=== PATIENT | female | born 1960 | race African-American/Black ===

== ENCOUNTER → 2017-04-05 | Outpatient (CLI) | payer BC ==
[2017-04-05 07:30] LABS: Basophils # (auto) 0 uL; Basophils % (auto) 0.2 % (0.0-2.0); Eosinophils # (auto) 0.1 uL; Eosinophils % (auto) 1.1 % (0.0-7.0); Hematocrit 40.5 % (36.0-46.0); Hemoglobin 13.7 g/dL (12.2-16.2); Lymphocytes # (auto) 4.5 uL; Lymphocytes % (auto) 40.7 % (10.0-50.0); Mean Corpuscular Hemoglobin 30.8 pg (28.0-32.0); Mean Corpuscular Hgb Conc. 33.8 g/dL (32.0-36.0); Mean Corpuscular Volume 91.1 fL (80.0-100.0); Mean Platelet Volume 7.6 fL (6.9-10.8); Monocytes # (auto) 0.4 uL; Platelet Count (auto) 299 10^3/uL (140-450); Red Cell Distribution Width 14.9 % (11.8-14.3); White Blood Cell 11.1 10^3/uL (4.4-10.8)
[2017-04-05 07:43] LABS: Albumin 3.4 g/dL (3.4-5.0); Bilirubin, Total 0.2 mg/dL (0.2-1.0); Potassium 3.8 mmol/L (3.5-5.1); Total Protein 8.5 g/dL (6.4-8.2)
== END | disposition home or self-care (01) ==
LOC: LAB 06:36
PROVIDERS: ATTEND Internal Medicine
DX: Z12.11 Encounter for screening for malignant neoplasm of colon (principal); E11.9 Type 2 diabetes mellitus without complications
CPT/HCPCS: 36415; 80053; 80061; 82043; 83036; 84443; 85025

== ENCOUNTER → 2017-04-09 | Outpatient (CLI) | payer BC | END | disposition home or self-care (01) | LOC: LAB 15:01 | DX: Z12.11 Encounter for screening for malignant neoplasm of colon (principal); E11.9 Type 2 diabetes mellitus without complications | CPT/HCPCS: 82270 ==

== ENCOUNTER → 2017-10-15 | Outpatient (CLI) | payer BC ==
[2017-10-15 08:13] LABS: Albumin 3.3 g/dL (3.4-5.0); BUN/Creatinine Ratio 18.2; Bilirubin, Total 0.2 mg/dL (0.2-1.0); Calcium 8.8 mg/dL (8.5-10.1); Potassium 3.8 mmol/L (3.5-5.1)
== END | disposition home or self-care (01) ==
LOC: LAB 07:09
PROVIDERS: ATTEND Internal Medicine
DX: E11.9 Type 2 diabetes mellitus without complications (principal); E78.5 Hyperlipidemia, unspecified
CPT/HCPCS: 36415; 80053; 80061; 82306; 83036

== ENCOUNTER 2018-02-22 07:40 | Day surgery (SDC) | payer BC ==
[2018-02-19 12:40] LABS: Basophils # (auto) 0 uL; Basophils % (auto) 0.1 % (0.0-2.0); Eosinophils # (auto) 0.1 uL; Eosinophils % (auto) 1.3 % (0.0-7.0); Hematocrit 41.7 % (36.0-46.0); Hemoglobin 13.8 g/dL (12.2-16.2); Lymphocytes # (auto) 3.3 uL; Lymphocytes % (auto) 33.5 % (10.0-50.0); Mean Corpuscular Hemoglobin 30.3 pg (28.0-32.0); Mean Corpuscular Volume 91.9 fL (80.0-100.0); Monocytes # (auto) 0.6 uL; Monocytes % (auto) 5.7 % (0.0-12.0); Neutrophils # (auto) 5.8 uL; Neutrophils % (auto) 59.4 % (37.0-80.0); Nucleated Red Blood Cells % 0.1 %; Platelet Count (auto) 280 10^3/uL (140-450); Red Blood Cells 4.54 10^6/uL (4.0-5.20); Red Cell Distribution Width 14.9 % (11.8-14.3); White Blood Cell 9.8 10^3/uL (4.4-10.8)
[2018-02-19 12:55] LABS: INR 0.91 (0.9-1.15); Partial Thromboplastin Time 28.9 sec (23.78-33.04); Prothrombin Time 9.8 sec (9.27-12.13)
[~2018-02-22] VITALS: Ht 167.6 cm; Wt 118.8 kg
[~2018-02-22 07:40] MED LIST: CANA1TAB PO
[2018-02-22] MEDS ORDERED: NALOXONE HCL 0.4 MG/ML VIAL ONE (08:09)
[2018-02-22] MEDS: fentaNYL CITRATE 100 MCG/2 ML VL ONE ×3 (08:09→09:13)
[2018-02-22] MEDS ORDERED: FLUMAZENIL 0.1 MG/ML INJ 10ML MDV IV ONE (08:09)
[2018-02-22] MEDS ORDERED: SODIUM CHLORIDE LOCK 10 ML ONE (08:09)
[2018-02-22] MEDS ORDERED: diphenhdrAMINE HCL 50 MG/1 ML VL ONE (08:09)
[2018-02-22] MEDS: MIDAZOLAM HCL 5 MG/ML-1ML VIAL ONE ×3 (09:04→09:13)
[2018-02-22] MEDS ORDERED: fentaNYL CITRATE 100 MCG/2 ML VL ONE (09:16)
[2018-02-22] MEDS ORDERED: MIDAZOLAM HCL 5 MG/ML-1ML VIAL ONE (09:16)
[2018-02-22 09:58] VITALS: BP 143/91
== END 2018-02-22 09:58 | disposition home or self-care (01) ==
LOC: GI 07:40
PROVIDERS: ATTEND Internal Medicine Gastroenterology
DX: Z12.11 Encounter for screening for malignant neoplasm of colon (principal); D12.0 Benign neoplasm of cecum; E66.9 Obesity, unspecified; E11.9 Type 2 diabetes mellitus without complications; Z68.41 Body mass index [BMI] 40.0-44.9, adult; Z98.890 Other specified postprocedural states; Z90.710 Acquired absence of both cervix and uterus
CPT/HCPCS: 36415; 45380; 82962; 85025; 85610; 85730; J2250; J3010; J7030; 99152

== ENCOUNTER → 2019-04-25 | Outpatient (CLI) | payer BC ==
[2019-04-25 09:50] LABS: Basophils # (auto) 0 uL; Basophils % (auto) 0.3 % (0.0-2.0); Eosinophils # (auto) 0.1 uL; Eosinophils % (auto) 0.9 % (0.0-7.0); Hematocrit 42.6 % (36.0-46.0); Hemoglobin 14.1 g/dL (12.2-16.2); Lymphocytes # (auto) 4.2 uL; Mean Corpuscular Hemoglobin 30.1 pg (28.0-32.0); Mean Corpuscular Hgb Conc. 33.1 g/dL (32.0-36.0); Monocytes # (auto) 0.5 uL; Monocytes % (auto) 4.4 % (0.0-12.0); Neutrophils # (auto) 6.6 uL; Neutrophils % (auto) 57.4 % (37.0-80.0); Platelet Count (auto) 282 10^3/uL (140-450); Red Blood Cells 4.68 10^6/uL (4.0-5.20); Red Cell Distribution Width 14.3 % (11.8-14.3); White Blood Cell 11.5 10^3/uL (4.4-10.8)
[2019-04-25 10:53] LABS: Albumin 3.4 g/dL (3.4-5.0); BUN/Creatinine Ratio 21.1; Calcium 9.2 mg/dL (8.5-10.1)
[2019-04-25 10:56] LABS: Bilirubin, Total 0.3 mg/dL (0.2-1.0); Total Protein 8.5 g/dL (6.4-8.2)
[2019-04-25 11:01] LABS: Free T3 3.09 pg/mL (2.3-4.2); Free T4 (Free Thyroxine) 0.88 ng/dL (0.89-1.76)
== END | disposition home or self-care (01) ==
LOC: LAB 09:24
PROVIDERS: ATTEND Internal Medicine
DX: Z00.00 Encounter for general adult medical examination without abnormal findings (principal); E78.5 Hyperlipidemia, unspecified; E11.9 Type 2 diabetes mellitus without complications
CPT/HCPCS: 36415; 80053; 80061; 82043; 82306; 83036; 84439; 84443; 84481; 85025

== ENCOUNTER 2020-05-13 11:59 | Inpatient (IN) | payer BC ==
[~2020-05-13] VITALS: Ht 167.6 cm; Wt 123.5 kg
[2020-05-13 14:43] LABS: Basophils # (auto) 0 10 ^3/uL (0-0.2); Basophils % (auto) 0.1 % (0.0-2.0); Eosinophils # (auto) 0 10 ^3/uL (0-0.8); Hematocrit 41.8 % (36.0-46.0); Lymphocytes # (auto) 2.3 10 ^3/uL (0.4-5.4); Lymphocytes % (auto) 22.4 % (10.0-50.0); Mean Corpuscular Hemoglobin 30.2 pg (28.0-32.0); Mean Corpuscular Hgb Conc. 33.6 g/dL (32.0-36.0); Mean Corpuscular Volume 89.8 fL (80.0-100.0); Monocytes # (auto) 0.6 10 ^3/uL (0-1.3); Monocytes % (auto) 5.9 % (0.0-12.0); Neutrophils # (auto) 7.3 10 ^3/uL (1.6-8.6); Neutrophils % (auto) 71.6 % (37.0-80.0); Nucleated Red Blood Cells % 0.1 %; Platelet Count (auto) 230 10^3/uL (140-450); Red Blood Cells 4.65 10^6/uL (4.0-5.20); Red Cell Distribution Width 14.1 % (11.8-14.3); White Blood Cell 10.2 10^3/uL (4.4-10.8)
[2020-05-13 15:06] LABS: Alanine Aminotransferase 22 U/L (13-56); Albumin 3.2 g/dL (3.4-5.0); Anion Gap 6 (5-15); Aspartate Aminotransferase 26 U/L (15-37); BUN/Creatinine Ratio 10.7; Blood Urea Nitrogen 8 mg/dL (7-18); Carbon Dioxide 30 mmol/L (21-32); Chloride 97 mmol/L (98-107); GFR African American 101 mL/min; GFR Non-African American 83 mL/min; Glucose 106 mg/dL (74-106); Potassium 3.5 mmol/L (3.5-5.1); Sodium 133 mmol/L (136-145)
[2020-05-13 15:17] LABS: Alkaline Phosphatase 87 U/L (45-117); Bilirubin, Total 0.5 mg/dL (0.2-1.0)
[2020-05-13] MEDS ORDERED: MORPHINE SULF INJ 2 MG/ML SYRINGE 1ML IV PRN ×2 (15:45→17:00)
[2020-05-13] MEDS ORDERED: NITROGLYCERIN 0.4 MG SL TAB SL PRN (15:45)
[2020-05-13] MEDS ORDERED: IBUPROFEN 600 MG TAB PO ONE (16:00)
[2020-05-13] MEDS ORDERED: ACETAMINOPHEN 500 MG TAB PO ONE (16:00)
[2020-05-13] MEDS ORDERED: traMADol HCL 50 MG TAB PO PRN (17:00)
[2020-05-13] MEDS ORDERED: DEXTROSE (50%) 50ML SYRG IV PRN (17:00)
[2020-05-13] MEDS ORDERED: ACETAMINOPHEN 500 MG TAB PO PRN (17:00)
[2020-05-13] MEDS ORDERED: SODIUM CHLORIDE 0.9% 1,000 ML IV SCH (17:00)
[2020-05-13] MEDS: InsuLIN REG 1unit/0.01ml Soln (100units/ml) SC SCH ×2 (17:00→22:00)
[2020-05-13] MEDS ORDERED: LORazepam 0.5 MG TAB PO PRN (17:00)
[2020-05-13] MEDS ORDERED: PROMETHAZINE HCL 25 MG/ML 1ML IV PRN (17:00)
[2020-05-13] MEDS ORDERED: LACTULOSE 20Gm/30ML SOLN PO PRN (17:00)
[2020-05-13] MEDS ORDERED: ALBUTEROL SULF 2.5 MG/0.5ML(0.5%) NEB SOLN NEB PRN (17:00)
[2020-05-13] MEDS: ACCU-CHEK COMFORT CURVE STRIP VI SCH ×2 (17:10→22:00)
[2020-05-13] MEDS: ALBUTEROL SULF 2.5 MG/0.5ML(0.5%) NEB SOLN NEB SCH ×2 (17:56→22:27)
[2020-05-13] MEDS: IPRATROPIUM BROM 0.5 MG/2.5ML INH SOL NEB SCH ×2 (17:56→22:27)
[2020-05-13 21:24] VITALS: BP 107/68
[2020-05-13] MEDS: ALBUTEROL SULF HFA 90MCG INH 200DOSE IN SCH (22:27)
[2020-05-13] MEDS: BUDESONIDE (INHALATION) 180 MCG IH IN SCH (22:27)
--- NOTE | 2020-05-13 22:27 | NUR ---
Respiratory note: RESP MEDS HELD AT THIS TIME WAITING FOR COVID RESULTS. PT IN NO DISTRESS
[2020-05-14] VITALS (7 sets, daily range): BP systolic 90–121; BP diastolic 50–62
[2020-05-14] MEDS: ALBUTEROL SULF HFA 90MCG INH 200DOSE IN SCH ×3 (06:00→22:39)
--- NOTE | 2020-05-14 06:13 | NUR ---
Telemetry admit from ER RUYYE admitted to Telemetry unit. Patient oriented to RICK ERAZO RN primary RN, MST unit, room 250, bed A, and unit policies regarding patient care and visiting hours. Patient now on continuous telemetry monitoring, tele box #24 and telemetry reading on arrival to unit is sinus rhythm. Patient weighed by bed scale and encouraged to call if they need something. All questions and concerns addressed, patient verbalized understanding. Note: Patient on 3L of oxygen via NC with even and unlabored respirations, no S/S of distress SOB or pain. Patient able to turn in bed independently, bed in lowest locked position, side rails up x2, and call light within reach. Will continue to monitor Q1HR PRN.
[2020-05-14] MEDS: InsuLIN REG 1unit/0.01ml Soln (100units/ml) SC SCH ×4 (07:00→22:00)
--- NOTE | 2020-05-14 07:33 | NUR ---
Respiratory note: ASSESSED PT NO RESP DISTRESS NOTED HR 76, RR 20, SPO2 96% ON 3L N/C. NO MDI'S AT BEDSIDE. WILL CALL PHARMACY
[2020-05-14] MEDS: ACCU-CHEK COMFORT CURVE STRIP VI SCH ×4 (08:24→23:52)
[2020-05-14] MEDS ORDERED: ENOXAPARIN SOD 40 MG/0.4 ML SYRINGE SC SCH ×2 (10:00)
[2020-05-14] MEDS: ASCORBIC ACID 1,000 MG TAB PO SCH (10:00)
[2020-05-14] MEDS: DexAMETHasone SOD PHOS 10MG/1ML VIAL INJ IV SCH (10:33)
[2020-05-14] MEDS: levoFLOXacin 500MG 100 ML IV SCH (10:33)
[2020-05-14] MEDS: ZINC SULFATE 220mg CAP or TAB PO SCH (10:34)
[2020-05-14] MEDS: CHOLECALCIFEROL (VITD3) 2,000 UNIT CAP PO SCH (10:34)
--- NOTE | 2020-05-14 11:30 | NUR ---
ACCU Patient refused insulin coverage for 145 BS. Patient educated on medication need and risk of hyperglycemia. Patient continues to refuse. Patient advised and educated on what s/s of hyperglycemia., and advised to call if any s/s
[2020-05-14 12:14] LABS: Basophils # (auto) 0 10 ^3/uL (0-0.2); Basophils % (auto) 0.1 % (0.0-2.0); Eosinophils # (auto) 0 10 ^3/uL (0-0.8); Hematocrit 38.7 % (36.0-46.0); Hemoglobin 12.8 g/dL (12.2-16.2); Lymphocytes # (auto) 0.7 10 ^3/uL (0.4-5.4); Lymphocytes % (auto) 7.5 % (10.0-50.0); Mean Corpuscular Hemoglobin 29.6 pg (28.0-32.0); Mean Corpuscular Hgb Conc. 33.1 g/dL (32.0-36.0); Mean Corpuscular Volume 89.5 fL (80.0-100.0); Monocytes # (auto) 0.2 10 ^3/uL (0-1.3); Monocytes % (auto) 2.4 % (0.0-12.0); Neutrophils # (auto) 8.4 10 ^3/uL (1.6-8.6); Platelet Count (auto) 227 10^3/uL (140-450); Red Blood Cells 4.32 10^6/uL (4.0-5.20); Red Cell Distribution Width 13.9 % (11.8-14.3); White Blood Cell 9.3 10^3/uL (4.4-10.8)
--- NOTE | 2020-05-14 12:15 | NUR ---
Dr. Horton at [facility]
[2020-05-14 12:31] LABS: Albumin 2.7 g/dL (3.4-5.0); Calcium 8.8 mg/dL (8.5-10.1); Potassium 3.6 mmol/L (3.5-5.1)
[2020-05-14 12:51] LABS: Bilirubin, Total 0.5 mg/dL (0.2-1.0); Total Protein 7.9 g/dL (6.4-8.2)
[2020-05-14] MEDS: BUDESONIDE (INHALATION) 180 MCG IH IN SCH ×2 (14:50→22:39)
[2020-05-14 15:07] LABS: Urine Bacteria NONE SEEN /hpf (None Seen); Urine Blood TRACE /uL (Negative); Urine Mucus FEW (None Seen); Urine Specific Gravity 1.022 (1.001-1.035); Urine WBC 14 /hpf (0 - 5)
--- NOTE | 2020-05-14 15:26 | NUR ---
Assessment Patient is a 60 year old female, patient is alert and oriented. Patient cognitive abilities are intact. Patient states that she can do all ADL's and ambulates independently, patient states that she has a wheelchair at home. Patient states that she has history with diabetes. Patient states that she is employed and lives with her son (Vazquez [phone]), and daughter in law. Patient states that she will return home post discharge. Patient states that he son and daughter in law are her support system. Patient stated that her son will provide transportation post discharge. Patient was receptive to receive Advance Directive forms. Discharge planning: Patient will return home post discharge and patient will follow up with PCP post discharge. Patient has all supplies for diabetes for home care. SW will provide Advance Directive to patient. Patient has no post discharge needs to identify at this moment. Addendum: 05/14/20 at 1532 by TAM BEDOYA SS Amended: Links added.
--- NOTE | 2020-05-14 17:00 | NUR ---
ACCU Patient refused insulin coverage for 176 BS. Patient states "I will never do insulin, Ill be careful with what I eat for dinner" Patient educated on medication need and risk of hyperglycemia. Patient continues to refuse. Patient advised and educated on what s/s of hyperglycemia., and advised to call if any s/s
--- NOTE | 2020-05-14 21:08 | NUR ---
Pain Medication Administration Patient complaining of back pain 03/04. Will administer pain medication per MD order. Will reassess pain level and will continue to monitor.
--- NOTE | 2020-05-14 21:38 | NUR ---
Pain Level Reassessment Patient's pain level reassessed to be 0/10. Patient denies pain at this time. Repositioned patient for comfort,will continue to monitor.
[2020-05-14] MEDS ORDERED: REMDESIVIR 200 MG in NS 210ml LOADING DOSE ADULT IV ONE (22:00)
--- NOTE | 2020-05-14 22:32 | NUR ---
Paged Hospitalist Paged hospitalist to inform of patient's blood pressure 90/51 and recheck 97/50. Informed hospitalist regarding patient scheduled to receive Remdesivir. Per hospitalist, hold administration of Remdesivir. Will carry out and will continue to monitor.
--- NOTE | 2020-05-14 23:00 | NUR ---
Patient Refusing Insulin Patient's blood glucose 166. Patient is to receive insulin. Patient refusing insulin,states she does not take insulin and states she does not need it. Explained risks and benefits of not taking insulin, patient verbalized understanding,continues to refuse.Will continue to monitor.
[2020-05-14] MEDS: ENOXAPARIN SOD 40 MG/0.4 ML SYRINGE SC SCH (23:52)
[2020-05-15] VITALS (10 sets, daily range): BP systolic 93–113; BP diastolic 53–70
--- NOTE | 2020-05-15 06:36 | NUR ---
Pharmacy Called pharmacy regarding Remdesivir being held due to low blood pressure and to reschedule dose. Per pharmacy, call when patient's blood pressure is stable for administration. Will endorse to AM nurse.
[2020-05-15] MEDS: ACCU-CHEK COMFORT CURVE STRIP VI SCH ×4 (06:40→21:18)
[2020-05-15] MEDS: InsuLIN REG 1unit/0.01ml Soln (100units/ml) SC SCH ×4 (06:40→21:19)
[2020-05-15 07:19] LABS: Basophils # (auto) 0 10 ^3/uL (0-0.2); Basophils % (auto) 0.1 % (0.0-2.0); Eosinophils # (auto) 0 10 ^3/uL (0-0.8); Hemoglobin 12.2 g/dL (12.2-16.2); Lymphocytes # (auto) 1.4 10 ^3/uL (0.4-5.4); Lymphocytes % (auto) 19.6 % (10.0-50.0); Mean Corpuscular Hemoglobin 29.4 pg (28.0-32.0); Mean Corpuscular Volume 89.1 fL (80.0-100.0); Monocytes # (auto) 0.5 10 ^3/uL (0-1.3); Monocytes % (auto) 7.8 % (0.0-12.0); Neutrophils # (auto) 5.1 10 ^3/uL (1.6-8.6); Neutrophils % (auto) 72.5 % (37.0-80.0); Nucleated Red Blood Cells % 0.1 %; Platelet Count (auto) 253 10^3/uL (140-450); Red Blood Cells 4.16 10^6/uL (4.0-5.20); Red Cell Distribution Width 13.8 % (11.8-14.3)
[2020-05-15] MEDS: BUDESONIDE (INHALATION) 180 MCG IH IN SCH ×2 (07:35→21:19)
[2020-05-15] MEDS: ALBUTEROL SULF HFA 90MCG INH 200DOSE IN SCH ×3 (07:35→21:19)
[2020-05-15 07:42] LABS: INR 1.01 (0.9-1.15)
[2020-05-15 07:55] LABS: Albumin 2.5 g/dL (3.4-5.0); BUN/Creatinine Ratio 18.3; Bilirubin, Total 0.4 mg/dL (0.2-1.0); CRP High Sensitivity 11.9 mg/dL (< 0.3); Calcium 8.9 mg/dL (8.5-10.1); Potassium 3.6 mmol/L (3.5-5.1); Total Protein 7.8 g/dL (6.4-8.2)
--- NOTE | 2020-05-15 08:00 | NUR ---
Opening Shift Note Assumed care of patient, awake, alert and oriented X4. No S/S of distress/SOB or pain. O2 @ 2 LPM via nasal cannula with sats @ 92%. IV X2, right forearm and right hand, both 22 gauge, patent and saline locked. Instructed on POC and to call for assist PRN, verbalized understanding. Bed locked, in lowest position, call light within reach, will continue to monitor for changes Q1hr and PRN
[2020-05-15] MEDS ORDERED: FUROSEMIDE 40 MG/4 ML VIAL IV SCH (10:00)
[2020-05-15] MEDS: DexAMETHasone SOD PHOS 10MG/1ML VIAL INJ IV SCH (10:36)
[2020-05-15] MEDS: CHOLECALCIFEROL (VITD3) 2,000 UNIT CAP PO SCH (10:37)
[2020-05-15] MEDS: levoFLOXacin 500MG 100 ML IV SCH (10:37)
[2020-05-15] MEDS: ZINC SULFATE 220mg CAP or TAB PO SCH (10:37)
[2020-05-15] MEDS: ENOXAPARIN SOD 40 MG/0.4 ML SYRINGE SC SCH ×2 (10:37→21:18)
[2020-05-15] MEDS: ASCORBIC ACID 1,000 MG TAB PO SCH (10:37)
--- NOTE | 2020-05-15 12:45 | NUR ---
ROUNDS Dr Horton at bedside for rounds, new orders received and followed through. Patient updated on plan of care, verbalized understanding.
[2020-05-15] MEDS ORDERED: REMDESIVIR 100mg in NS 230ml DAILYx4DAYS (NO VENT) IV SCH (17:00)
--- NOTE | 2020-05-15 18:20 | NUR ---
CONVALESCENT PLASMA Convalescent plasma started, V/S 93/60 P 84 BPM RR 18 O2 97% ON RA T 98.1 F
--- NOTE | 2020-05-15 18:32 | NUR ---
CONVALESCENT PLASMA V/S 113/65 P 70 RR 16 T 98.3 F 02 98% on RA
--- NOTE | 2020-05-15 19:27 | NUR ---
Care endorsed to MIRIAN Lund, night nurse.
--- NOTE | 2020-05-15 20:12 | NUR ---
Convalescent Plasma Finished Patient's convalescent plasma finished infusing. Patient's vital signs: 98.3, HR 79, RR 18, BP 106/54, O2 94. No signs or symptoms of distress noted. Will continue to monitor.
[2020-05-15] MEDS ORDERED: REMDESIVIR 200 MG in NS 210ml LOADING DOSE ADULT IV ONE (21:00)
--- NOTE | 2020-05-15 21:14 | NUR ---
Lizzy Patient's informed consent signed and in chart. Patient made aware of possible side effects, verbalized understanding. Pre-infusion vital signs 2114: 97.6, HR 84, RR 19, BP 108/70, O2 97. Vital signs 15 minutes after infusion 2129: 97.6, HR 76, RR 20, BP 111/59, O2 94. No signs or symptoms of distress noted. Patient denies any symptoms. Will continue to monitor.
--- NOTE | 2020-05-15 23:14 | NUR ---
Remdesivir Complete Infusion of Remdesivir complete. Patient's vital signs: 97.6, HR 72, RR 18, BP 103/62 O2 94. No signs or symptoms of distress noted. Will continue to monitor.
[2020-05-16] VITALS (7 sets, daily range): BP systolic 102–124; BP diastolic 50–75
[2020-05-16] MEDS: BUDESONIDE (INHALATION) 180 MCG IH IN SCH ×2 (06:18→22:06)
[2020-05-16] MEDS: ALBUTEROL SULF HFA 90MCG INH 200DOSE IN SCH ×3 (06:18→22:06)
[2020-05-16] MEDS: InsuLIN REG 1unit/0.01ml Soln (100units/ml) SC SCH ×4 (06:41→22:00)
[2020-05-16] MEDS: ACCU-CHEK COMFORT CURVE STRIP VI SCH ×4 (06:41→22:39)
[2020-05-16 07:57] LABS: Albumin 2.6 g/dL (3.4-5.0); Potassium 3.9 mmol/L (3.5-5.1)
[2020-05-16 07:59] LABS: BUN/Creatinine Ratio 28.1
[2020-05-16 08:02] LABS: Bilirubin, Total 0.3 mg/dL (0.2-1.0); Total Protein 7.7 g/dL (6.4-8.2)
[2020-05-16] MEDS: ZINC SULFATE 220mg CAP or TAB PO SCH (10:23)
[2020-05-16] MEDS: CHOLECALCIFEROL (VITD3) 2,000 UNIT CAP PO SCH (10:23)
[2020-05-16] MEDS: ASCORBIC ACID 1,000 MG TAB PO SCH (10:23)
[2020-05-16] MEDS: ENOXAPARIN SOD 40 MG/0.4 ML SYRINGE SC SCH ×2 (10:23→22:39)
[2020-05-16] MEDS: levoFLOXacin 500MG 100 ML IV SCH (10:24)
[2020-05-16] MEDS: DexAMETHasone SOD PHOS 10MG/1ML VIAL INJ IV SCH (13:52)
--- NOTE | 2020-05-16 13:53 | NUR ---
Opening Shift Note Assumed care of patient, awake, alert and oriented X4. No S/S of distress/SOB or pain. O2 @ 2 LPM via nasal cannula with sats @ 94%. IV X2, right forearm and right hand, both 22 gauge, patent and saline locked. Instructed on POC and to call for assist PRN, verbalized understanding. Bed locked, in lowest position, call light within reach, will continue to monitor for changes Q1hr and PRN.
[2020-05-16] MEDS: REMDESIVIR 100mg in NS 230ml DAILYx4DAYS (NO VENT) IV SCH (17:00)
--- NOTE | 2020-05-16 17:00 | NUR ---
Lizzy Patient's informed consent signed and in chart. Patient made aware of possible side effects, verbalized understanding. Pre-infusion vital signs 1655: 98.2, HR 68, RR 18, BP 124/66, O2 92% on RA. Vital signs 15 minutes after infusion 1715: 98.4, HR 62, RR 20, BP 123/64, O2 91 on RA. No signs or symptoms of distress noted. Patient denies any symptoms. Will continue to monitor.
--- NOTE | 2020-05-16 19:20 | NUR ---
Care endorsed to MIRIAN Lund, night nurse.
--- NOTE | 2020-05-16 19:39 | NUR ---
Opening Shift Note Received report and assumed care of patient. Patient is awake and alert. No signs or symptoms of distress noted. Instructed patient on plan of care and to call for assistance as needed. Will continue to monitor.
--- NOTE | 2020-05-16 19:40 | NUR ---
Remdesivir Complete Infusion of Remdesivir complete. Patient's vital signs: 97.4, HR 79, RR 19, BP 117/56 O2 99. No signs or symptoms of distress noted. Patient denies any symptoms. Will continue to monitor.
[2020-05-17 05:00] VITALS: BP 127/79
[2020-05-17] MEDS: InsuLIN REG 1unit/0.01ml Soln (100units/ml) SC SCH ×5 (06:51→22:48)
[2020-05-17] MEDS: ACCU-CHEK COMFORT CURVE STRIP VI SCH ×4 (06:51→22:49)
[2020-05-17 07:00] LABS: Albumin 2.4 g/dL (3.4-5.0); Calcium 8.7 mg/dL (8.5-10.1); Potassium 3.8 mmol/L (3.5-5.1)
[2020-05-17 07:04] LABS: BUN/Creatinine Ratio 27.3; Bilirubin, Total 0.2 mg/dL (0.2-1.0)
[2020-05-17 08:00] VITALS: BP 101/59
--- NOTE | 2020-05-17 08:00 | NUR ---
Opening Shift Note Assumed care of patient, awake, alert and oriented X4. No S/S of distress/SOB or pain. O2 @ 2 LPM via nasal cannula with sats @ 93%. IV to right hand, 22 gauge, patent and saline locked. Instructed on POC and to call for assist PRN, verbalized understanding. Bed locked, in lowest position, call light within reach, will continue to monitor for changes Q1hr and PRN
--- NOTE | 2020-05-17 10:39 | NUR ---
Nutrition Assessment Est energy needs [id number] kcal (11-14 kcal/kg BW 120.2kg) Est protein needs 57-74g (1-1.3g/kg IBW 57kg) Will monitor and reassess prn. Addendum: 05/17/20 at [address] Amended: Links added.
[2020-05-17] MEDS: ZINC SULFATE 220mg CAP or TAB PO SCH (11:01)
[2020-05-17] MEDS: levoFLOXacin 500MG 100 ML IV SCH (11:01)
[2020-05-17] MEDS: DexAMETHasone SOD PHOS 10MG/1ML VIAL INJ IV SCH (11:01)
[2020-05-17] MEDS: ENOXAPARIN SOD 40 MG/0.4 ML SYRINGE SC SCH ×2 (11:02→22:49)
[2020-05-17] MEDS: ASCORBIC ACID 1,000 MG TAB PO SCH (11:02)
[2020-05-17] MEDS: CHOLECALCIFEROL (VITD3) 2,000 UNIT CAP PO SCH (11:02)
[2020-05-17 12:00] VITALS: BP 101/59
--- NOTE | 2020-05-17 12:12 | NUR ---
JOANNA Muhammad at bedside for rounds, new orders received and followed through. Patient updated on plan of care, verbalized understanding.
[2020-05-17] MEDS: ALBUTEROL SULF HFA 90MCG INH 200DOSE IN SCH ×3 (14:00→21:46)
[2020-05-17] MEDS: BUDESONIDE (INHALATION) 180 MCG IH IN SCH ×2 (14:39→21:46)
[2020-05-17] MEDS ORDERED: IOHEXOL 350 MG/ML 100ML IJ ONE (15:18)
[2020-05-17 17:00] VITALS: BP 136/67
--- NOTE | 2020-05-17 17:00 | NUR ---
Lizzy Patient's informed consent signed and in chart. Patient made aware of possible side effects, verbalized understanding. Pre-infusion vital signs 1655: 97.9, HR 80, RR 19, BP 136/67, O2 96% on 2 LPM via nasal cannula. Vital signs 15 minutes after infusion 1715: 98.2, HR 64, RR 18, BP 124/62, O2 94 on RA. No signs or symptoms of distress noted. Patient denies any symptoms. Will continue to monitor.
[2020-05-17] MEDS: REMDESIVIR 100mg in NS 230ml DAILYx4DAYS (NO VENT) IV SCH (18:16)
--- NOTE | 2020-05-17 19:09 | NUR ---
Care endorsed to MIRIAN Devine, night nurse.
--- NOTE | 2020-05-17 20:00 | NUR ---
POST Remdesivir V/S REMDESIVIR INFUSION ENDED AT THIS TIME. PT TOLERATED WELL, NO NAUSEA/VOMIT/FEVER/CHILLS REPORTED V/S-B/P-121/68, HR-73, O2-96%,T-97.4, RR-18
[2020-05-17 22:21] VITALS: BP 114/65
[2020-05-18 04:53] VITALS: BP 108/72
[2020-05-18] MEDS: ACCU-CHEK COMFORT CURVE STRIP VI SCH ×4 (06:42→22:02)
[2020-05-18] MEDS: InsuLIN REG 1unit/0.01ml Soln (100units/ml) SC SCH ×4 (06:43→22:00)
[2020-05-18 06:54] LABS: Potassium 3.8 mmol/L (3.5-5.1)
[2020-05-18 07:10] LABS: Albumin 2.7 g/dL (3.4-5.0); BUN/Creatinine Ratio 23.1; Bilirubin, Total 0.3 mg/dL (0.2-1.0); Calcium 8.9 mg/dL (8.5-10.1); Total Protein 7.5 g/dL (6.4-8.2)
[2020-05-18] MEDS: ALBUTEROL SULF HFA 90MCG INH 200DOSE IN SCH ×3 (08:09→20:40)
[2020-05-18] MEDS: BUDESONIDE (INHALATION) 180 MCG IH IN SCH ×2 (08:09→20:40)
[2020-05-18 09:00] VITALS: BP 109/58
[2020-05-18] MEDS: ZINC SULFATE 220mg CAP or TAB PO SCH (10:00)
[2020-05-18] MEDS: DexAMETHasone SOD PHOS 10MG/1ML VIAL INJ IV SCH (10:22)
[2020-05-18] MEDS: ASCORBIC ACID 1,000 MG TAB PO SCH (10:23)
[2020-05-18] MEDS: levoFLOXacin 500MG 100 ML IV SCH (10:23)
[2020-05-18] MEDS: CHOLECALCIFEROL (VITD3) 2,000 UNIT CAP PO SCH (10:24)
[2020-05-18] MEDS: ENOXAPARIN SOD 40 MG/0.4 ML SYRINGE SC SCH ×2 (10:24→22:01)
[2020-05-18 13:00] VITALS: BP 115/64
--- NOTE | 2020-05-18 13:54 | NUR ---
END OF SHIFT NOTES WILL ENDORSE CARE TO PROPAGATOR RN,PT AOX4, NO S/S OF DISTRESS OR SOB
[2020-05-18 17:00] VITALS: BP 94/50
[2020-05-18] MEDS: REMDESIVIR 100mg in NS 230ml DAILYx4DAYS (NO VENT) IV SCH (17:00)
--- NOTE | 2020-05-18 17:00 | NUR ---
start REMDESIVIR infusion BP: 105/47 HR: 79
--- NOTE | 2020-05-18 17:15 | NUR ---
15 MINUTE Remdesivir vitals BP: 120/58 HR: 70
--- NOTE | 2020-05-18 18:20 | NUR ---
post remdesivir vitals BP: 131/70 HR: 64
--- NOTE | 2020-05-18 19:59 | NUR ---
OPENING NOTE Patient is A&O X's 4 with no s/s of distress and reports no SOB or pain at this time. Patient is on RA. Respirations are even and unlabored. Patient has IS at bedside and verbalized understanding on using IS Q1HR. Educated patient on POC and to use call light when in need of any assistance. Patient verbalized understanding. bed is in lowest/locked position with side rails up X's 2 and call light is within reach of patient. Will continue care.
[2020-05-18 22:00] VITALS: BP 142/70
--- NOTE | 2020-05-18 22:00 | NUR ---
IV removal PATIENT C/O PAIN TO IV SITE. 22G IV TO RIGHT HAND DC'd with clean sterile technique, catheter fully intact. Pressure dressing applied to site. Patient tolerated well.
--- NOTE | 2020-05-18 22:00 | NUR ---
blood sugar 259. Patient refusing insulin. Patient reports that she will never take insulin because that is not what she takes at home. Educated patient risk of hyperglycemia. Patient verbalized understanding but still refusing at this time.
[2020-05-19 05:00] VITALS: BP 103/55
[2020-05-19] MEDS: ACCU-CHEK COMFORT CURVE STRIP VI SCH ×3 (06:31→17:00)
[2020-05-19] MEDS: InsuLIN REG 1unit/0.01ml Soln (100units/ml) SC SCH ×3 (06:31→17:00)
--- NOTE | 2020-05-19 06:32 | NUR ---
REFUSED INSULIN BLOOD SUGAR 137. PATIENT WAS EDUCATED ON RISKS OF NOT RECEIVING INSULIN. PATIENT VERBALIZED UNDERSTANDING AND CONTINUES TO REFUSE.
[2020-05-19] MEDS: ALBUTEROL SULF HFA 90MCG INH 200DOSE IN SCH ×2 (07:00→14:56)
[2020-05-19] MEDS: BUDESONIDE (INHALATION) 180 MCG IH IN SCH (07:00)
--- NOTE | 2020-05-19 07:15 | NUR ---
OPENING NOTE ASSUMED CARE OF PT. ALERT AND ORIENTED. NO S/S OF SOB/DISTRESS NOTED. BED SET TO LOWEST POSITION/LOCKED, BEDSIDE RAILS UP X2, CALL LIGHT WITHIN REACH. INSTRUCTED PT TO CALL FOR ASSISTANCE. UPDATED ON POC. PT VERBALIZED UNDERSTANDING. WILL CONTINUE TO MONITOR Q1HR AND PRN.
[2020-05-19 07:48] LABS: Albumin 2.5 g/dL (3.4-5.0); Calcium 8.4 mg/dL (8.5-10.1); Potassium 3.7 mmol/L (3.5-5.1)
[2020-05-19 07:53] LABS: Bilirubin, Total 0.4 mg/dL (0.2-1.0); Total Protein 6.8 g/dL (6.4-8.2)
[2020-05-19 09:00] VITALS: BP 116/45
[2020-05-19] MEDS: DexAMETHasone SOD PHOS 10MG/1ML VIAL INJ IV SCH (10:32)
[2020-05-19] MEDS: levoFLOXacin 500MG 100 ML IV SCH (10:33)
[2020-05-19] MEDS: ZINC SULFATE 220mg CAP or TAB PO SCH (10:33)
[2020-05-19] MEDS: ENOXAPARIN SOD 40 MG/0.4 ML SYRINGE SC SCH (10:34)
[2020-05-19] MEDS: CHOLECALCIFEROL (VITD3) 2,000 UNIT CAP PO SCH (10:34)
[2020-05-19] MEDS: ASCORBIC ACID 1,000 MG TAB PO SCH (10:34)
--- NOTE | 2020-05-19 11:35 | NUR ---
REFUSED INSULIN BLOOD SUGAR 189. PATIENT WAS EDUCATED ON RISKS OF NOT RECEIVING INSULIN. PATIENT VERBALIZED UNDERSTANDING AND CONTINUES TO REFUSE.
--- NOTE | 2020-05-19 12:15 | NUR ---
at bedside Dr. Horton at bedside. Patient informed she will be discharged home today after her 1700 Remdisivir administration.
[2020-05-19 13:00] VITALS: BP 112/55
[2020-05-19] MEDS ORDERED: ZINC220C10 PO (15:45)
[2020-05-19] MEDS ORDERED: ASPI81CH43 PO (15:45)
[2020-05-19] MEDS ORDERED: ALBUAER3 IN (15:45)
[2020-05-19] MEDS ORDERED: ASCO10003 PO (15:45)
[2020-05-19] MEDS ORDERED: CHOL1CAP47 PO (15:45)
[2020-05-19 17:00] VITALS: BP 133/72
[2020-05-19] MEDS: REMDESIVIR 100mg in NS 230ml DAILYx4DAYS (NO VENT) IV SCH (17:00)
--- NOTE | 2020-05-19 17:00 | NUR ---
start REMDESIVIR infusion BP: 133/72 HR: 73
[2020-05-19 17:12] VITALS: BP 112/55
--- NOTE | 2020-05-19 17:15 | NUR ---
15 MINUTE Remdesivir vitals BP: 123/75 HR: 71
--- NOTE | 2020-05-19 18:23 | NUR ---
Discharge packet and education provided to patient. Patient advised to call and schedule a follow up appointment with primary MD.
--- NOTE | 2020-05-19 19:02 | NUR ---
Post REMDESIVIR VS BP- 131/61 HR- 76 Patient tolerated infusion without complaints of Nausea/Vomiting.
--- NOTE | 2020-05-19 19:03 | NUR ---
Endorse DC to NOC RN. Patient finishing up with dinner awaiting on her son to pick her up. Will endorse discharge to NOC RN.
--- NOTE | 2020-05-19 19:41 | NUR ---
DISCHARGE Discharge instructions given as ordered by day shift RN. Encourage to follow up with PMD as instructed. All questions and concerns addressed. Patient verbalized understanding. IV removed with catheter intact, pressure dressing applied by day shift RN. Telemetry unit returned to ICU by day shift RN. Patient taken to vehicle via wheelchair with all personal belongings, accompanied by staff. No distress noted at time of departure.
== END 2020-05-19 19:41 | disposition home or self-care (01) | DRG 177 ==
LOC: ER 11:59 → TELE 12:00 → TELE-EAST 05-14 06:07 → EAST 05-16 04:44
PROVIDERS: ADMIT Internal Medicine; ATTEND Internal Medicine
PROC: XW033E5 Introduction of Remdesivir Anti-infective into Peripheral Vein, Percutaneous Approach, New Technology Group 5 (ICD-10-PCS; principal; 2020-05-15)
PROC: XW13325 Transfusion of Convalescent Plasma (Nonautologous) into Peripheral Vein, Percutaneous Approach, New Technology Group 5 (ICD-10-PCS; 2020-05-15)
DX: U07.1 COVID-19 (principal); J12.89 Other viral pneumonia; J96.01 Acute respiratory failure with hypoxia; Z68.41 Body mass index [BMI] 40.0-44.9, adult; E87.1 Hypo-osmolality and hyponatremia; E11.65 Type 2 diabetes mellitus with hyperglycemia; E55.9 Vitamin D deficiency, unspecified; E66.01 Morbid (severe) obesity due to excess calories; Z79.899 Other long term (current) drug therapy
CPT/HCPCS: 36415; 71045; 71275; 80053; 81001; 82043; 82306; 82728; 82962; 83036; 83615; 84443; 84484; 85025; 85379; 85610; 85652; 86141; 86850; 86900; 86901; 87426; 93005; 94640; G0378; J1100; J1815; J1956